=== PATIENT | male | born 1960 ===

== ENCOUNTER 2025-04-29 11:53 | Outpatient (AMB) | payer OTHER, SELFPAY ==
--- NOTE | 2025-04-29 11:59 | AM.OFFWIN_ITS ---
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 - The injury happened about five minutes before consultation due to a slip while handling a large part which is sharp but not dirty, greasy or otherwise contaminated, this occured while at work. - He did not clean the wound prior to ar rival. - The patient retained mobility in the t humb - Denies allergy to lidocaine. Physical Exam General: Cooperative, healthy appearing, comfortable, no acute distress and well developed Orientation: Patient oriented x3 Limitations: No limitations Head: Normal to inspection Ears: Hearing grossly normal bilaterally Nose: Normal External nose present Face and sinus: Normal facial exam Eyes: Appearance normal, both eyes and all related structures Neck: Normal visual inspection and Yes full ROM Respiratory: Normal respiratory effort and able to speak in complete sentences. Skin: No rashes or lesions noted Neuro: Patient oriented x3 Extremities: 1.5cm linear laceration at the base of the posterior right thumb, NVI, full ROM, very TTP. Review of Systems Const All systems reviewed & are unremarkable except as noted in HPI and below Physical Exam Vital Signs: Last Vital Signs Temp 98.5 F 04/29/25 12:00 Pulse 79 04/29/25 12:00 Resp 16 04/29/25 12:00 BP 112/80 04/29/25 12:00 Pulse Ox 98 04/29/25 12:00 Oxygen Delivery Method Room Air 04/29/25 12:00 BMI result Body Mass Index 31.1 Office Procedures AMB Laceration Repair Details: Irrigated the wound thoroughly in a solution of diluted Betadine in normal saline. Cleaned and prepped the area using sterile technique. Injected the sides of the wound with 1% lidocaine, proximally 0.5 cc per side Placed three 5- 0 sutures in the base of the right thumb along a 1.5 cm linear laceration. Applied bacitracin and a Band-Aid as well as wrapped his hand and gauze. Gave wound care instructions Laceration repair performed by: Anne Zelaya Explained risks and benefits to parent: Yes Informed consent given: Yes Consent signed: No Location: base of right thumb Length: 1.5cm Sedation: No Anesthesia: 2% lidocaine Irrigation: saline Preparation: betadine Wound exploration: none Deep closure: No Skin closure: nylon Technique: 3 5-0 sutures placed Topical treatment: triple antibiotic Tetanus toxoid ordered: Yes Patient tolerated procedure: well Complications: [place] [id number] Repair <2.5cm Procedure code (CPT) selection complete Office Meds lidocaine HCl 20 mg/mL (2 %) injection solution Performing Provider: Anne Zelaya PA-C Performing Location: [facility] [place] [facility] Administered by: Anne Zelaya PA-C on 04/29/25 12:53 Dose Route Admin Location Dispensed Lot Number Expiration Date [facility] Retail Sales Advisor 1 mL Infiltration 1 mL [id number] 11/25/25 11337-563-31 Immunizations Boostrix Tdap 2.5 Lf unit-8 mcg-5 Lf/0.5 mL intramuscular syringe Performing Provider: Anne Zelaya PA-C Performing Location: [facility] [place] [facility] Administered by: Melody Chavez CMA on 04/29/25 12:15 Dose Route Admin Location Dispensed Lot Number Expiration Date [facility] Retail Sales Advisor 0.5 mL IM Left Deltoid 0.5 mL [id number] 07/22/27 16974-976-50 [facility] Given Date VIS Provided VIS Publication Date 04/29/25 Single Vaccine 21 Eligibility Eligibility Date Funding Source Not [facility] Eligible 04/29/25 Private Assessment & Plan Assessment & Plan (1) Thumb laceration: Code(s): S61.019A - Laceration without foreign body of unspecified thumb without damage to nail, initial encounter Qualifiers: Damage to nail status: without damage Encounter type: initial encounter Foreign body presence: without foreign body Laterality: right Qualified Code(s): S61.011A - Laceration without foreign body of right thumb without damage to nail, initial encounter Plan: Plan - Will get hand XR to verify bone/joint is not affected as area is very tender and bone is very close to the surface. - Sutured the laceration on the right thumb - Gave wound care instructions and recommended patient return in 8 to 10 days for suture removal. - Instruct the patient to watch for signs of infection and report back if symptoms like increased pain, unusual discharge, redness, warmth, or fever occur. Patient was informed and verbally consented to the use of an ambient scribe for clinic note documentation during this visit. Orders: Orders TDaP Immunization Today Z23 - Encounter for immunization XR hand RT min 3V Today S61.019A - Laceration without foreign body of unspecified thumb without damage to nail, initial encounter AMB Laceration Repair Today S61.019A - Laceration without foreign body of unspecified thumb without damage to nail, initial encounter Coding Level of Care Code New Pt Level 4 (76669) Diagnoses Laceration of right thumb without foreign body without damage to nail, initial encounter S61.011A Damage to nail status: without damage Encounter type: initial encounter Foreign body presence: without foreign body Laterality: right CPT Codes Office Procedure - Laceration Repair 1: [id number] Repair <2.5cm ([id number])
[2025-04-29 12:00] VITALS: BP 112/80; PULSE 79; RESP 16; TEMP 36.9; O2SAT 98; BMI 31.1
== END 2025-04-29 12:50 | disposition home or self-care (01) ==
PROVIDERS: Visit Provider Physician Assistant
DX: S61.011A Laceration without foreign body of right thumb without damage to nail, initial encounter (principal); Z04.2 Encounter for examination and observation following work accident

== ENCOUNTER 2025-04-29 11:53 | Outpatient (REF) | payer OTHER, SELFPAY ==
--- NOTE | ~2025-04-29 | XR_ITS ---
EXAMINATION: XR HAND, RIGHT CLINICAL INFORMATION: S61.019A - Laceration without foreign body of thumb COMPARISON: None available. TECHNIQUE: PA, lateral, and oblique views of the right hand. FINDINGS: There is mild narrowing, cirrhosis, now osteophytes involving the first carpal metacarpal joint. No erosions are evident. Small cystic like lesion is present in the waist of scaphoid on the oblique projection. No radiopaque foreign body is identified. No fracture is evident. 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 Otherwise, unremarkable. Electronically signed by: Dariel Webtser MD 04/29/2025 01:24 PM EDT
== END 2025-04-29 11:54 | disposition home or self-care (01) ==
LOC: HO.HMGCX 11:53
PROVIDERS: Visit Provider Physician Assistant
DX: S61.011A Laceration without foreign body of right thumb without damage to nail, initial encounter (principal); Z23 Encounter for immunization
CPT/HCPCS: 12001; 73130; 90471; 90715; 99202; J2003

== ENCOUNTER → 2025-04-29 13:03 | Outpatient (BNV) | payer OTHER, SELFPAY | PROVIDERS: Visit Provider Radiology Diagnostic Radiology | DX: M18.11 Unilateral primary osteoarthritis of first carpometacarpal joint, right hand (principal) | CPT/HCPCS: 73130 ==

== ENCOUNTER 2025-05-08 09:33 | Outpatient (AMB) | payer OTHER, SELFPAY ==
[2025-05-08 09:52] VITALS: BP 122/80; PULSE 79; TEMP 36.6; O2SAT 97; BMI 31.1
--- NOTE | 2025-05-08 09:52 | AM.OFFWIN_ITS ---
Intake Vital Signs 05/08/25 09:52 Height 6 ft Weight 229 lb BMI 31.1 BP 122/80 Blood Pressure Location Rt brachial Position Sitting Pulse 79 Pulse Source Pulse Oximeter Temp 97.8 F Temp Source Oral Pulse Oximetry (%) 97 Oxygen Delivery Method Room Air Intake Visit Reasons: EP-stitches removal Intake Note: Pt presents to the office today for c/o stitch removal. Pt states he had the stitches placed on 04/29/25. Patient Tobacco Use Status: Never used Tobacco Allergies No Known Allergies Allergy (Verified 05/08/25 09:52) HPI HPI Comments History of Present Illness Details Patient is a 64-year-old male here for the removal of sutures which were placed on April 29. He had 3 sutures placed on the base of his left thumb after a heavy, sharp part fell on it at work. He denies any drainage or fevers or pain and states everything seems to be healing well. He states he can move his thumb normally and can feel sensation throughout his thumb and does not have any reduced strength in his thumb. He says it feels completely normal. [facility] Social History Patient Tobacco Use Status: Never used Tobacco Review of Systems Const All systems reviewed & are unremarkable except as noted in HPI and below Physical Exam Vital Signs: Last Vital Signs Temp 97.8 F 05/08/25 09:52 Pulse 79 05/08/25 09:52 BP 122/80 05/08/25 09:52 Pulse Ox 97 05/08/25 09:52 Oxygen Delivery Method Room Air 05/08/25 09:52 BMI result Body Mass Index 31.1 Const General: cooperative, healthy appearing, comfortable, no acute distress and well developed Orientation/consciousness: patient oriented x3 Limitations: no limitations HEENT Head: Yes normal to inspection Neck Neck: Yes normal visual inspection and Yes supple Neuro General: patient oriented x3 Extrem Other: Right thumb is neurovascularly intact, has full range of motion, 1.5 cm linear laceration is healing well with no erythema or drainage noted. MA was able to remove 3 sutures with no problems Assessment & Plan Assessment & Plan (1) Visit for suture removal: Code(s): Z48.02 - Encounter for removal of sutures Plan: review assistant was able to remove 3 sutures, areas seems to be healing very well, recommended applying Aquaphor twice daily for the next few days and keeping the wound clean and dry. Gave him red flag warning signs and when to return. Coding Level of Care Code New Pt Level 3 (55497) Diagnoses Visit for suture removal Z48.02
== END 2025-05-08 10:11 | disposition home or self-care (01) ==
PROVIDERS: Visit Provider Physician Assistant
DX: S61.011D Laceration without foreign body of right thumb without damage to nail, subsequent encounter (principal); Z48.02 Encounter for removal of sutures; Z04.2 Encounter for examination and observation following work accident

== ENCOUNTER → 2025-05-08 09:33 | Outpatient (BNVA) | payer OTHER, SELFPAY | DX: Z48.02 Encounter for removal of sutures (principal) | CPT/HCPCS: 99212 ==